=== PATIENT | male | born 1955 | race Caucasian/White ===

== ENCOUNTER 2017-05-29 12:59 | Emergency (ER) | payer SELFPAY ==
[~2017-05-29] VITALS: Ht 167.6 cm; Wt 75.0 kg
[~2017-05-29 12:59] MED LIST: NAPR550 PO; Z.0.NO CURRENT MEDS
[2017-05-29 13:07] VITALS: BP 109/67; PULSE 90; RESP 18; TEMP 97.8; O2SAT 97
[2017-05-29] MEDS ORDERED: LIDOCAINE 1%/EPINEPHrine 1:100,000 SOLN 20 ML VIAL INFIL ONE (14:45)
--- NOTE | 2017-05-29 14:53 | PD ---
HPI Chief Complaint: Skin complaint Time Seen by Provider: 14:38 Travel History International Travel<30 days: No Contact w/Intl Traveler<30days: No Traveled to known affect area: No History of Present Illness HPI 62-year-old male presents to the emergency room for evaluation of a growing, painful, red lump to his back. Patient first noticed it one year ago but it was small and did not bother him. States it occasionally larger but decreased on its own. States it increased in size 2-3 weeks ago, larger than it has ever been , and has become increasingly painful. He denies any drainage. Denies fever, chills, nausea, and vomiting. PFSH Past Medical History Diminished Hearing: No Hypertension: Yes Musculoskeletal: Yes (BACK PROBLEMS IN PAST) Past Surgical History Other Surgery: Yes (HERNIA) Social History Alcohol Use: No Tobacco Use: Yes (1 PPD X 30+ YEARS ) Substance Use: No Allergies-Medications (Allergen,Severity, Reaction): Coded Allergies: No Known Allergies (Verified , 08/26/11) Reported Meds & Prescriptions Reported Meds & Active Scripts Active Anaprox Ds (Naproxen Sodium) 550 Mg Tab 550 Mg PO BIDPRN Reported No Current Meds (Miscellaneous Medication) Misc Review of Systems Except as stated in HPI: all other systems reviewed are Neg Physical Exam Narrative GENERAL: Well-nourished, well-developed male in no acute distress. Afebrile. Ambulatory. SKIN: Focused skin assessment warm/dry. There is an indurated area in the left mid back which measures about 4 cm in diameter. It is fluctuant but there is no pointing or drainage. There is a zone of inflammation around it but no lymphangitis. HEAD: Normocephalic. EYES: No scleral icterus. No injection or drainage. NECK: Supple, trachea midline. No JVD or lymphadenopathy. CARDIOVASCULAR: Regular rate and rhythm without murmurs, gallops, or rubs. RESPIRATORY: Breath sounds equal bilaterally. No accessory muscle use. PSYCHIATRIC: No delusional thought processes. No hallucinations. Data Data Last Documented VS Vital Signs Date Time Temp Pulse Resp B/P (MAP) Pulse Ox O2 Delivery O2 Flow Rate FiO2 05/29/17 13:07 97.8 90 18 109/67 (81) 97 Room Air Orders Orders Lidocai-Epi 1%-1:100,000 Inj (Xylocaine- (05/29/17 14:45) MDM Medical Decision Making Medical Screen Exam Complete: Yes Emergency Medical Condition: Yes Medical Record Reviewed: Yes Differential Diagnosis Abscess, cellulitis, folliculitis, infected sebaceous cyst Narrative Course 62-year-old male presents to the emergency room for evaluation of painful lump to back that has been increasing in size for the past 2-3 weeks. Physical exam reveals a 4 cm abscess of fluctuance and erythema on the left mid back. It is extremely tender to palpation. No surrounding erythema or lymphangitis. Vital signs stable. History and physical exam are consistent with infected sebaceous cyst. Abscess was drained, see procedure note for details. Patient was told to follow-up with a credit portfolio advisor for sebaceous cyst removal. Patient discharged with prescription for Bactrim and told to follow-up with a primary care physician or return for worsening symptoms. He understands and agrees to plan. Procedures Procedure Narrative INCISION AND DRAINAGE OF ABSCESS: The area was prepped and was sterilely draped. A subcutaneous wheal of 1% lidocaine with epinephrine with a total number 2 mL was used to anesthetize the area properly. A number 11 scalpel was used to make a 1 cm incision across the area of the abscess. The abscess was drained, complex loculations were broken down, and irrigated with normal saline. Cultures were obtained. Sterile dressing applied. Diagnosis Primary Impression: Infected sebaceous cyst of skin Referrals: Primary Care Physician Additional Instructions: Rest and drink plenty of fluids. Take Bactrim as directed, until gone. Follow up with a primary care physician. Return to emergency room for worsening symptoms, as discussed. Disposition: 01 DISCHARGE HOME Condition: Stable Nilda Riggs May 29, 2017 14:53
[2017-05-29] MEDS ORDERED: BACT800T5 PO (14:54)
[2017-05-29 14:58] VITALS: PULSE 80; RESP 16; O2SAT 98
[2017-05-29] MEDS ORDERED: LIDOCAINE HCL 1% 50 ML VIAL INFIL ONE (15:30)
== END 2017-05-29 15:52 | disposition home or self-care (01) ==
LOC: PHED 12:59 → PHEFT 15:52
DX: L72.3 Sebaceous cyst (principal); L08.9 Local infection of the skin and subcutaneous tissue, unspecified; I10 Essential (primary) hypertension; F17.210 Nicotine dependence, cigarettes, uncomplicated
CPT/HCPCS: 10060

== ENCOUNTER 2017-11-18 20:03 | Observation (INO) | payer SELFPAY ==
[~2017-11-18] VITALS: Ht 167.6 cm; Wt 73.4 kg
[2017-11-18] VITALS (9 sets, daily range): BP systolic 164–228; BP diastolic 90–134; PULSE 76–89; RESP 16–20; TEMP 98.7; O2SAT 94–97
[~2017-11-18 20:03] MED LIST changes: +BACT800T5 PO
[2017-11-18] MEDS ORDERED: LABETALOL HCL 100 MG/20 ML VIAL IV PUSH ONE ×2 (20:45→23:00)
[2017-11-18] MEDS ORDERED: SODIUM CHLORIDE 0.9% FLUSH 10 ML FLUSH IVF PRN (20:45)
[2017-11-18] MEDS ORDERED: ASPIRIN 81 MG CHEW TAB PO ONE (20:45)
[2017-11-18] MEDS ORDERED: NITROGLYCERIN 0.4 MG SL 25 TABS/BTL SL ONE (20:45)
--- NOTE | 2017-11-18 20:47 | PD ---
HPI Chief Complaint: Chest Pain Time Seen by Provider: 20:41 Travel History International Travel<30 days: No Contact w/Intl Traveler<30days: No Traveled to known affect area: No History of Present Illness HPI 62-year-old male presents to the emergency department by private transportation for complaint of intermittent chest pain and elevated blood pressure today. Patient is prescribed lisinopril. Patient states during the day started noticing discomfort in his chest which is now resolved. Patient also reports that he has not been taking his prescription blood pressure medication as he has been out of the medication. Patient is a tobacco smoker. Patient denies diabetes and dyslipidemia and does not report of premature onset family history of cardiac disease. Patient states he underwent cardiac catheterization he thinks about a year ago and did not undergo angioplasty or stent placement for similar presentation of chest pain associated with uncontrolled hyper pressure. Patient was managed at that time reportedly during his cardiac catheterization visit at [facility]. Patient rates his current discomfort 0-1/10 in intensity. Patient states intermittently throughout the day pain has been 8/10 intensity but denies that discomfort at this time. Patient had some shortness of breath but otherwise no shortness of breath secondary to tobacco use and possible COPD patient states no increased shortness of breath no diaphoresis no nausea or vomiting. Patient denies referred midscapular upper extremity shoulder neck jaw or abdominal pain but does complain of chronic low back pain denies any lower extremity numbness tingling or weakness saddle anesthesia or bladder or bowel dysfunction. [facility] Past Medical History Narrative Medical Hypertension, chronic low back pain, tobaccoism, cardiac catheterization; nursing notes reviewed Diminished Hearing: No Hypertension: Yes Musculoskeletal: Yes (BACK PROBLEMS IN PAST) Reproductive: Yes (hernia lt) Past Surgical History Other Surgery: Yes (HERNIA) Social History Alcohol Use: No Tobacco Use: Yes (1 PPD X 30+ YEARS ) Substance Use: No Allergies-Medications (Allergen,Severity, Reaction): Coded Allergies: No Known Allergies (Verified , 08/26/11) Reported Meds & Prescriptions Reported Meds & Active Scripts Active Bactrim DS (Sulfamethoxazole-Trimethoprim) 800-160 Mg Tab 1 Tab PO BID Anaprox Ds (Naproxen Sodium) 550 Mg Tab 550 Mg PO BIDPRN Reported No Current Meds (Miscellaneous Medication) Misc Review of Systems Except as stated in HPI: all other systems reviewed are Neg Physical Exam Narrative GENERAL: Well-developed well-nourished male no acute distress and respiratory distress with marked hypertension blood pressures right upper extremity left upper extremity essentially unchanged SKIN: Warm and dry. HEAD: Normocephalic. EYES: No scleral icterus. No injection or drainage. NECK: Supple, trachea midline. No JVD or lymphadenopathy. CARDIOVASCULAR: Regular rate and rhythm without murmurs, gallops, or rubs. RESPIRATORY: Breath sounds equal bilaterally. No accessory muscle use. GASTROINTESTINAL: Abdomen soft, non-tender, nondistended. MUSCULOSKELETAL: No cyanosis, or edema. Radial and dorsalis pedis pulses 2+ to palpation. BACK: Nontender without obvious deformity. No CVA tenderness. Data Data Last Documented VS Vital Signs Date Time Temp Pulse Resp B/P (MAP) Pulse Ox O2 Delivery O2 Flow Rate FiO2 11/18/17 22:53 77 16 180/104 (129) 96 Room Air 11/18/17 20:20 98.7 Orders Orders Electrocardiogram (11/18/17 20:41) Basic Metabolic Panel (Bmp) (11/18/17 20:41) Ckmb (Isoenzyme) Profile (11/18/17 20:41) Complete Blood Count With Diff (11/18/17 20:41) Magnesium (Mg) (11/18/17 20:41) Prothrombin Time / Inr (Pt) (11/18/17 20:41) Act Partial Throm Time (Ptt) (11/18/17 20:41) Troponin I (11/18/17 20:41) Chest, Single Ap (11/18/17 20:41) Ecg Monitoring (11/18/17 20:41) Bilateral Bp Monitoring (11/18/17 20:41) Iv Access Insert/Monitor (11/18/17 20:41) Oximetry (11/18/17 20:41) Oxygen Administration (11/18/17 20:41) Aspirin Chew (Aspirin Chew) (11/18/17 20:45) Sodium Chloride 0.9% Flush (Ns Flush) (11/18/17 20:45) Nitroglycerin Sl (Nitrostat Sl) (11/18/17 20:45) Labetalol Inj (Trandate Inj) (11/18/17 20:45) CKMB (11/18/17 20:58) CKMB% (11/18/17 20:58) Nitroglycerin 2% Oint (Nitroglycerin 2% (11/18/17 21:45) Morphine Inj (Morphine Inj) (11/18/17 21:45) Ondansetron Inj (Zofran Inj) (11/18/17 21:45) Labetalol Inj (Trandate Inj) (11/18/17 23:00) Labs Laboratory Tests Test 11/18/17 20:58 White Blood Count 5.5 TH/MM3 Red Blood Count 4.78 MIL/MM3 Hemoglobin 14.8 GM/DL Hematocrit 43.1 % Mean Corpuscular Volume 90.3 FL Mean Corpuscular Hemoglobin 30.9 PG Mean Corpuscular Hemoglobin Concent 34.2 % Red Cell Distribution Width 13.0 % Platelet Count 146 TH/MM3 Mean Platelet Volume 9.5 FL CBC Comment AUTO DIFF Differential Total Cells Counted 100 Neutrophils % (Manual) 45 % Lymphocytes % 43 % Monocytes % 10 % Eosinophils % 2 % Neutrophils # (Manual) 2.5 TH/MM3 Differential Comment FINAL DIFF MANUAL Atypical Lymphocytes % Platelet Estimate LOW Platelet Morphology Comment NORMAL Prothrombin Time 10.5 SEC Prothromb Time International Ratio 1.0 RATIO Activated Partial Thromboplast Time 21.1 SEC Blood Urea Nitrogen 9 MG/DL Creatinine 0.98 MG/DL Random Glucose 101 MG/DL Calcium Level 8.5 MG/DL Magnesium Level 2.0 MG/DL Sodium Level 134 MEQ/L Potassium Level 3.5 MEQ/L Chloride Level 102 MEQ/L Carbon Dioxide Level 25.4 MEQ/L Anion Gap 7 MEQ/L Estimat Glomerular Filtration Rate 78 ML/MIN Total Creatine Kinase 154 U/L Creatine Kinase MB 1.9 NG/ML Troponin I LESS THAN 0.02 NG/ML MDM Medical Decision Making Medical Screen Exam Complete: Yes Emergency Medical Condition: Yes Medical Record Reviewed: Yes Interpretation(s) EKG: Normal sinus rhythm rate [address] elevation prominent T waves, poor R -wave progression septally V1 V2 Chest X-Ray 11/18/172040 Signed Impressions: Service Date/Time: Saturday, November 18, 2017 21:01 - CONCLUSION: No acute cardiopulmonary disease. Spencer Green MD CBC & BMP Diagram 11/18/17 20:58 Calcium Level 8.5, Magnesium Level 2.0 Vital Signs Date Time Temp Pulse Resp B/P (MAP) Pulse Ox O2 Delivery O2 Flow Rate FiO2 11/18/17 21:17 16 11/18/17 21:13 84 16 164/90 (114) 94 Room Air 11/18/17 21:09 76 16 199/115 (143) 95 Room Air 11/18/17 20:41 83 16 214/121 (152) 94 Room Air 11/18/17 20:40 83 16 228/134 (165) 97 Room Air 11/18/17 20:29 79 18 219/109 (145) 96 Room Air 11/18/17 20:20 98.7 89 20 183/105 (131) 97 Differential Diagnosis Chest pain, ACS, DE, hypertensive crisis, aortic dissection Narrative Course Patient placed on monitoring manager EKG performed shows normal sinus rhythm rate of 82 prominent T waves no acute ST elevation injury pattern no comparison EKG patient also placed on continuous pulse oximetry IV access obtained aspirin 162 mg administered one sublingual nitroglycerin for 0-1/10 in intensity chest discomfort and labetalol ordered for blood pressure control. At 9:45 PM after 1 sublingual nitroglycerin blood pressure has markedly improved and patient denies any chest discomfort discomfort as 0/10 in intensity and denies any chest pain pain is 0/10 intensity except for headache secondary to sublingual nitroglycerin overall discomfort/pain is 0/10 intensity. Patient administered Nitropaste to chest wall and morphine sulfate 2 mg IV along with Zofran 4 mg IV. Troponin I is less than 0.02, not elevated and CK total is not elevated; patient is informed of plan to admit to chest pain center per protocol for chest pain with risk factors of male age 62 hypertension tobaccoism. Most likely chest pain reflects really controlled hypertension but this factors are present for CAD. Chest x-ray reveals no mediastinal widening. Physician Communication Physician Communication discussed with [facility] service for OBS to [facility] per protocol Diagnosis Primary Impression: Chest pain Additional Impression: Hypertensive urgency Admitting Information Admitting Physician Requests: Observation Yolanda Mariscal MD Nov 18, 2017 20:47
--- NOTE | 2017-11-18 21:13 | RADRPT ---
EXAM DATE/TIME: 11/18/2017 21:01 [place] COMPARISON: No previous studies available for comparison. INDICATIONS : Chest pain starting today MEDICAL HISTORY : Hypertension. SURGICAL HISTORY : None. ENCOUNTER: Initial ACUITY: 1 day PAIN SCORE: 5/10 LOCATION: Bilateral chest FINDINGS: The lungs are clear without infiltrate, nodule, or mass. There is no appreciable pleural effusion fo r technique. Heart and mediastinum are unremarkable. CONCLUSION: No acute cardiopulmonary disease. Spencer Green MD on November 18, 2017 at 21:11 Board Certified Radiologist. This report was verified electronically.
[2017-11-18 21:17] LABS: CHLORIDE 102 MEQ/L (98-107); SODIUM (NA) 134 MEQ/L (136-145)
[2017-11-18 21:20] LABS: BICARBONATE 25.4 MEQ/L (21.0-32.0); BLOOD UREA NITROGEN 9 MG/DL (7-18); CALCIUM 8.5 MG/DL (8.5-10.1); GLUCOSE,RANDOM 101 MG/DL (74-106)
[2017-11-18 21:24] LABS: CREATININE 0.98 MG/DL (0.60-1.30); GLOMERULAR FILTRATION RATE 78 ML/MIN (>89); PROTHROMBIN TIME - PATIENT 10.5 SEC (9.8-11.6)
[2017-11-18 21:25] LABS: HEMATOCRIT 43.1 % (39.0-51.0); HEMOGLOBIN 14.8 GM/DL (13.0-17.0); MEAN CELL VOLUME 90.3 FL (80.0-100.0); MEAN CORPUSCULAR HEMOGLOBIN 30.9 PG (27.0-34.0); MEAN CORPUSCULAR HGB CONC 34.2 % (32.0-36.0); MEAN PLATELET VOLUME 9.5 FL (7.0-11.0); PLATELET COUNT 146 TH/MM3 (150-450); RED BLOOD COUNT 4.78 MIL/MM3 (4.50-5.90); WHITE BLOOD COUNT 5.5 TH/MM3 (4.0-11.0)
[2017-11-18 21:28] LABS: TROPONIN I LESS THAN 0.02 NG/ML (0.02-0.05)
[2017-11-18] MEDS ORDERED: ONDANSETRON HCL 4 MG/2 ML VIAL IV PUSH ONE (21:45)
[2017-11-18] MEDS ORDERED: MORPHINE SULFATE 2 MG/ML INJ IV PUSH ONE (21:45)
[2017-11-18] MEDS ORDERED: NITROGLYCERIN 2% OINT 1 GM PACKET TOPICAL ONE (21:45)
[2017-11-18 22:29] LABS: LYMPHOCYTES 43 % (9-44); MONOCYTES 10 % (0-8); NEUTROPHIL # MANUAL DIFF 2.5 TH/MM3 (1.8-7.7); POLYS (SEG NEUTROPHILS) 45 % (16-70)
[2017-11-18] MEDS ORDERED: SODIUM CHLORIDE 0.9% FLUSH 10 ML FLUSH IV FLUSH PRN (23:30)
[2017-11-18] MEDS ORDERED: NITROGLYCERIN 0.4 MG SL 25 TABS/BTL SL PRN (23:30)
[2017-11-19] VITALS (7 sets, daily range): BP systolic 126–223; BP diastolic 68–123; PULSE 63–76; RESP 14–16; O2SAT 95–98
[2017-11-19 05:57] LABS: AUTOMATED NEUTROPHIL # 3.9 TH/MM3 (1.8-7.7); BASOPHIL % 0.8 % (0.0-2.0); EOSINOPHIL # 0.2 TH/MM3 (0-0.4); EOSINOPHIL % 3.5 % (0.0-4.0); HEMATOCRIT 41.3 % (39.0-51.0); HEMOGLOBIN 14.8 GM/DL (13.0-17.0); LYMPH % 23.2 % (9.0-44.0); LYMPHOCYTE # 1.3 TH/MM3 (1.0-4.8); MEAN CORPUSCULAR HEMOGLOBIN 32.2 PG (27.0-34.0); MEAN CORPUSCULAR HGB CONC 35.8 % (32.0-36.0); MEAN PLATELET VOLUME 8.8 FL (7.0-11.0); MONOCYTE # 0.4 TH/MM3 (0-0.9); NEUT % 65.5 % (16.0-70.0); PLATELET COUNT 150 TH/MM3 (150-450); RED BLOOD COUNT 4.59 MIL/MM3 (4.50-5.90); RED CELL DISTRIBUTION WIDTH 13.1 % (11.6-17.2); WHITE BLOOD COUNT 5.8 TH/MM3 (4.0-11.0)
[2017-11-19 06:04] LABS: BICARBONATE 25.1 MEQ/L (21.0-32.0)
[2017-11-19] MEDS ORDERED: LISINOPRIL 10 MG TAB PO SCH (08:00)
[2017-11-19] MEDS ORDERED: METOPROLOL TARTRATE 25 MG TAB PO SCH (08:00)
[2017-11-19] MEDS ORDERED: ENALAPRILAT 1.25 MG/ML VIAL IV PUSH PRN (08:00)
[2017-11-19] MEDS ORDERED: SODIUM CHLORIDE 0.9% FLUSH 10 ML FLUSH IV FLUSH SCH (09:00)
[2017-11-19 10:36] LABS: CHOLESTEROL/ HDL RATIO 4.86 RATIO; HDL CHOLESTEROL 28.6 MG/DL (40.0-60.0)
--- NOTE | 2017-11-19 14:56 | EKG ---
Date Performed: 11/18/2017 Time Performed: 20:30:28 PTAGE: 62 years EKG: Sinus rhythm NORMAL ECG PREVIOUS TRACING : 02/13/2011 20.47 Since the prior tracing, there has been no significant woodward DOCTOR: Guy Guzmán Interpretating Date/Time 11/19/2017 14:48:40
--- NOTE | 2017-11-19 14:56 | EKG ---
Date Performed: 11/19/2017 Time Performed: 07:51:10 PTAGE: 62 years EKG: Sinus rhythm WITH SINUS ARRHYTHMIA MINIMAL VOLTAGE CRITERIA FOR LVH, CONSIDER NORMAL VARIANT BORDERLINE ECG PREVIOUS TRACING : 11/19/2017 01.45 Since the prior tracing, there has been no significant woodward DOCTOR: Guy Guzmán Interpretating Date/Time 11/19/2017 14:48:22
--- NOTE | 2017-11-19 14:56 | EKG ---
Date Performed: 11/19/2017 Time Performed: 01:45:10 PTAGE: 62 years EKG: Sinus rhythm NORMAL ECG PREVIOUS TRACING : 11/18/2017 20.30 Since the prior tracing, there has been no significant woodward DOCTOR: Guy Guzmán Interpretating Date/Time 11/19/2017 14:48:31
[2017-11-20] MEDS ORDERED: PNEUMOCOCCAL POLYVALENT INJ 25 MCG/0.5 ML SYR IM ONE (10:00)
[2017-11-20] MEDS ORDERED: INFLUENZA VIRUS VACCINE (QUADRIVALENT) 0.5 ML SYR IM ONE (10:00)
== END 2017-11-19 09:00 | disposition left against medical advice (07) ==
LOC: PHED 20:03 → PHEDA 23:19 → PHEDH 11-19 06:15
PROVIDERS: ADMIT Hospitalist; ATTEND Hospitalist
DX: R07.9 Chest pain, unspecified (principal); I16.0 Hypertensive urgency; I10 Essential (primary) hypertension; G89.29 Other chronic pain; M54.5 Low back pain; F17.200 Nicotine dependence, unspecified, uncomplicated; Z91.14 Patient's other noncompliance with medication regimen; Z98.61 Coronary angioplasty status; Z53.20 Procedure and treatment not carried out because of patient's decision for unspecified reasons
CPT/HCPCS: 71045; 80048; 80061; 82550; 82552; 83735; 84484; 85007; 85025; 85027; 85610; 85730; 93005; 96374; 96375; 96376; 99285; G0378; J2270; J2405

== ENCOUNTER 2018-07-13 17:37 | Observation (INO) ==
[2018-07-13 18:11] LABS: Baso # (Auto) 0.1 th/mm3 (0.0-0.2); Baso % (Auto) 0.9 % (0.0-2.0); Eos # (Auto) 0.2 th/mm3 (0.0-0.4); Eos % (Auto) 2.4 % (0.0-4.0); Hematocrit 40.5 % (39.0-51.0); Hemoglobin 13.9 gm/dL (13.0-17.0); Lymph # (Auto) 2.4 th/mm3 (1.0-4.8); Lymph % (Auto) 32.3 % (9.0-44.0); Mean Corpuscular HGB Conc 34.3 % (32.0-36.0); Mean Corpuscular Hemoglobin 32.8 pg (27.0-34.0); Mean Corpuscular Volume 95.6 fL (80.0-100.0); Mean Platelet Volume 8.7 fL (7.0-11.0); Mono # (Auto) 0.4 th/mm3 (0.0-0.9); Mono % (Auto) 5.4 % (0.0-8.0); Neut # (Auto) 4.3 th/mm3 (1.8-7.7); Platelet Count 193 th/mm3 (150-450); Red Blood Count 4.24 mil/mm3 (4.50-5.90); Red Cell Distribution Width 12.8 % (11.6-17.2); White Blood Count 7.4 th/mm3 (4.0-11.0)
[2018-07-13 18:17] LABS: Chloride 104 meq/L (98-107); Potassium 3.1 meq/L (3.5-5.1); Sodium 139 meq/L (136-145)
--- NOTE | 2018-07-13 18:19 | XR ---
EXAM DATE: 07/13/2018 5:45 PM EDT AGE/SEX: 63 years / Male INDICATIONS: Chest pain and shortness of breath. CLINICAL DATA: This is the patient's initial encounter. Patient reports that signs and symptoms have been present for 3 days and indicates a pain score of 5/10. MEDICAL/SURGICAL HISTORY: Hypertension. None. COMPARISON: [facility], CHEST SINGLE AP, 11/18/2017. . FINDINGS: A single AP view of the chest demonstrates the lungs to be symmetrically aerated without evidence of mass, infiltrate or effusion. The cardiomediastinal contours are unremarkable. Osseous structures a re intact. CONCLUSION: No acute cardiopulmonary process. Electronically signed by: Valdez Camejo MD 07/13/2018 6:18 PM EDT
[2018-07-13 18:21] LABS: Activated Partial Thrombo Time 21.6 sec (24.3-30.1); Prothrombin Time 10.2 sec (9.8-11.6)
[2018-07-13 18:22] LABS: Albumin 3.8 g/dL (3.4-5.0); Anion Gap 14 meq/L (5-15); Carbon Dioxide 21.4 meq/L (21.0-32.0)
[2018-07-13 18:23] LABS: Blood Urea Nitrogen 10 mg/dL (7-18); Glucose,Random 131 mg/dL (74-106); Magnesium 2.3 mg/dL (1.5-2.5)
[2018-07-13 18:25] LABS: Alanine Aminotransferase 25 U/L (12-78)
[2018-07-13 18:26] LABS: Aspartate Aminotransferase 28 U/L (15-37); Glomerular Filtration Rate 89 mL/min (>89)
[2018-07-13 18:27] LABS: Total Protein 6.8 g/dL (6.4-8.2)
[2018-07-13 18:28] LABS: Alkaline Phosphatase 98 U/L (45-117)
[2018-07-13 18:51] LABS: Creatine Kinase 90 U/L (39-308)
--- NOTE | 2018-07-13 19:24 | ED ---
HPI General Chief Complaint: Chest Pain Stated Complaint: chest pain Time Seen by Provider: 07/13/18 19:02 Source: patient Mode of arrival: ambulatory Limitations: no limitations History of Present Illness HPI narrative: Patient presents with substernal pressure radiating to both arms of acute onset while in store at 4 PM. Patient describes pressure 8 out of 10 like discomfort with diaphoresis of 15-20 minutes duration. Mild shortness of breath. Patient has history of hypertension and had a PR in October at [facility]. Patient being treated for hypertension. Patient is a chronic smoker with a cough that is persistent and produces yellow-green sputum. Vague anterior chest pain with deep inspiration or cough. No pain or discomfort in abdomen or extremities. MD complaint: Reports chest pain Related Data Home Medications Medication Instructions Recorded Confirmed lisinopril 40 mg PO DAILY 07/13/18 07/13/18 Allergies Allergy/AdvReac Type Severity Reaction Status Date / Time No Known Allergies Allergy Verified 07/13/18 17:39 Review of Systems ROS: all other systems reviewed are negative [facility] Medical History Medical History CAD (coronary artery disease) (Acute) Hypertension (Acute) Surgical History Surgical History No history of previous surgery (Acute) Social History Social History Substance History: No History of Abuse Second Hand Smoke Exposure: Yes Smoking Status: Current every day smoker Tobacco Type: Cigarettes How Often Do You Have a Drink Containing Alcohol: 2 to 3 times a week Recent Travel in [facility] within the Last 8 Weeks: No Recent Out of Country Travel within the Last 8 Weeks: No Immunization History Tetanus Immunization: Unsure Exam Narrative Exam Narrative: GENERAL: Alert oriented in no acute distress. No chest pain at present. SKIN: Focused skin assessment warm/dry. HEAD: Atraumatic. Normocephalic. EYES: Pupils equal and round. No scleral icterus. No injection or drainage. ENT: No nasal bleeding or discharge. Mucous membranes pink and moist. NECK: Trachea midline. No JVD. CARDIOVASCULAR: Regular rate and rhythm. No murmur appreciated. RESPIRATORY: No accessory muscle use. Clear to auscultation. Breath sounds equal bilaterally. Crepitant rales bilateral in bases GASTROINTESTINAL: Abdomen soft, non-tender, nondistended. Hepatic and splenic margins not palpable. MUSCULOSKELETAL: No obvious deformities. No clubbing. No cyanosis. No edema. NEUROLOGICAL: Awake and alert. No obvious cranial nerve deficits. Motor grossly within normal limits. Normal speech. PSYCHIATRIC: Appropriate mood and affect; insight and judgment normal. Course Initial Documented Vital Signs Temperature 97.6 F 07/13/18 17:39 Pulse Rate 94 H 07/13/18 17:39 Respiratory Rate 20 07/13/18 17:39 Blood Pressure 114/79 07/13/18 17:39 Pulse Oximetry 96 07/13/18 17:39 Last Documented Vital Signs Temperature 97 F L 07/14/18 00:00 Pulse Rate 87 07/14/18 00:00 Respiratory Rate 20 07/14/18 00:00 Blood Pressure 181/102 H 07/14/18 00:00 Pulse Oximetry 98 07/14/18 00:00 Medical Decision Making MDM Narrative Medical decision making narrative: Patient presents with approximately 4 different episodes of chest pain lasting between 15-20 minutes. Patient admitted for 24-hour observation and cardiac evaluation for CAD. No acute changes at present no recurrence of chest pain since presentation. Medical Screen Exam Complete: Yes Emergency Medical Condition: Yes Lab Data Result diagrams: 07/13/18 19:45 07/13/18 18:00 Lab Results 07/13/18 07/13/18 07/13/18 Range/Units 18:00 18:00 18:00 CBC w Diff Auto diff final WBC 7.4 (4.0-11.0) th/mm3 RBC 4.24 L (4.50-5.90) mil/mm3 Hgb 13.9 (13.0-17.0) gm/dL Hct 40.5 (39.0-51.0) % MCV 95.6 (80.0-100.0) fL MCH 32.8 (27.0-34.0) pg MCHC 34.3 (32.0-36.0) % RDW 12.8 (11.6-17.2) % Plt Count 193 (150-450) th/mm3 MPV 8.7 (7.0-11.0) fL Neut % (Auto) 59.0 (16.0-70.0) % Lymph % (Auto) 32.3 (9.0-44.0) % [place] % (Auto) 5.4 (0.0-8.0) % Eos % (Auto) 2.4 (0.0-4.0) % Baso % (Auto) 0.9 (0.0-2.0) % Neut # (Auto) 4.3 (1.8-7.7) th/mm3 Lymph # (Auto) 2.4 (1.0-4.8) th/mm3 [place] # (Auto) 0.4 (0.0-0.9) th/mm3 Eos # (Auto) 0.2 (0.0-0.4) th/mm3 Baso # (Auto) 0.1 (0.0-0.2) th/mm3 WBC Differential . Differential Comment . PT 10.2 (9.8-11.6) sec INR 1.0 Ratio APTT 21.6 L (24.3-30.1) sec Sodium 139 (136-145) meq/L Potassium 3.1 L (3.5-5.1) meq/L Chloride 104 (98-107) meq/L Carbon Dioxide 21.4 (21.0-32.0) meq/L Anion Gap 14 (5-15) meq/L BUN 10 (7-18) mg/dL Creatinine 0.87 (0.60-1.30) mg/dL Estimated GFR 89 (>89) mL/min Random Glucose 131 H (74-106) mg/dL Calcium 8.0 L (8.5-10.1) mg/dL Magnesium 2.3 (1.5-2.5) mg/dL Total Bilirubin 0.4 (0.2-1.0) mg/dL AST 28 (15-37) U/L ALT 25 (12-78) U/L Alkaline Phosphatase 98 (45-117) U/L Total Creatine Kinase 90 (39-308) U/L Troponin I Less than 0.02 L (0.02-0.05) ng/mL B-Natriuretic Peptide (0-100) pg/mL Total Protein 6.8 (6.4-8.2) g/dL Albumin 3.8 (3.4-5.0) g/dL Urine Color (Yellw/Straw) Urine Clarity (Clear) Urine pH (5.0-8.5) Ur Specific [place] (1.002-1.035) Urine Protein (Neg-Trace) mg/dL Urine Glucose (UA) (Negative) mg/dL Urine Ketones (Negative) mg/dL Urine Occult Blood (Negative) Urine Nitrate (Negative) Urine Bilirubin (Negative) Urine Urobilinogen (Less than 2) mg/dL Ur Leukocyte Esterase (Negative) Urine WBC (0-5) /hpf Micro UA Comment Ur Microscopic Review Urine Culture Comments 07/13/18 07/13/18 07/13/18 Range/Units 19:45 19:45 19:45 CBC w Diff Auto diff final WBC 6.9 (4.0-11.0) th/mm3 RBC 4.31 L (4.50-5.90) mil/mm3 Hgb 14.2 (13.0-17.0) gm/dL Hct 40.0 (39.0-51.0) % MCV 92.8 (80.0-100.0) fL MCH 32.9 (27.0-34.0) pg MCHC 35.4 (32.0-36.0) % RDW 13.1 (11.6-17.2) % Plt Count 222 (150-450) th/mm3 MPV 9.5 (7.0-11.0) fL Neut % (Auto) 52.5 (16.0-70.0) % Lymph % (Auto) 34.2 (9.0-44.0) % [place] % (Auto) 5.7 (0.0-8.0) % Eos % (Auto) 3.3 (0.0-4.0) % Baso % (Auto) 4.3 H (0.0-2.0) % Neut # (Auto) 3.6 (1.8-7.7) th/mm3 Lymph # (Auto) 2.4 (1.0-4.8) th/mm3 [place] # (Auto) 0.4 (0.0-0.9) th/mm3 Eos # (Auto) 0.2 (0.0-0.4) th/mm3 Baso # (Auto) 0.3 H (0.0-0.2) th/mm3 WBC Differential . Differential Comment . PT (9.8-11.6) sec INR Ratio APTT (24.3-30.1) sec Sodium (136-145) meq/L Potassium (3.5-5.1) meq/L Chloride (98-107) meq/L Carbon Dioxide (21.0-32.0) meq/L Anion Gap (5-15) meq/L BUN (7-18) mg/dL Creatinine (0.60-1.30) mg/dL Estimated GFR (>89) mL/min Random Glucose (74-106) mg/dL Calcium (8.5-10.1) mg/dL Magnesium (1.5-2.5) mg/dL Total Bilirubin (0.2-1.0) mg/dL AST (15-37) U/L ALT (12-78) U/L Alkaline Phosphatase (45-117) U/L Total Creatine Kinase (39-308) U/L Troponin I Less than 0.02 L (0.02-0.05) ng/mL B-Natriuretic Peptide 48 (0-100) pg/mL Total Protein (6.4-8.2) g/dL Albumin (3.4-5.0) g/dL Urine Color (Yellw/Straw) Urine Clarity (Clear) Urine pH (5.0-8.5) Ur Specific [place] (1.002-1.035) Urine Protein (Neg-Trace) mg/dL Urine Glucose (UA) (Negative) mg/dL Urine Ketones (Negative) mg/dL Urine Occult Blood (Negative) Urine Nitrate (Negative) Urine Bilirubin (Negative) Urine Urobilinogen (Less than 2) mg/dL Ur Leukocyte Esterase (Negative) Urine WBC (0-5) /hpf Micro UA Comment Ur Microscopic Review Urine Culture Comments 07/13/18 07/13/18 07/14/18 Range/Units 21:30 22:15 02:30 CBC w Diff WBC (4.0-11.0) th/mm3 RBC (4.50-5.90) mil/mm3 Hgb (13.0-17.0) gm/dL Hct (39.0-51.0) % MCV (80.0-100.0) fL MCH (27.0-34.0) pg MCHC (32.0-36.0) % RDW (11.6-17.2) % Plt Count (150-450) th/mm3 MPV (7.0-11.0) fL Neut % (Auto) (16.0-70.0) % Lymph % (Auto) (9.0-44.0) % [place] % (Auto) (0.0-8.0) % Eos % (Auto) (0.0-4.0) % Baso % (Auto) (0.0-2.0) % Neut # (Auto) (1.8-7.7) th/mm3 Lymph # (Auto) (1.0-4.8) th/mm3 [place] # (Auto) (0.0-0.9) th/mm3 Eos # (Auto) (0.0-0.4) th/mm3 Baso # (Auto) (0.0-0.2) th/mm3 WBC Differential Differential Comment PT (9.8-11.6) sec INR Ratio APTT (24.3-30.1) sec Sodium (136-145) meq/L Potassium (3.5-5.1) meq/L Chloride (98-107) meq/L Carbon Dioxide (21.0-32.0) meq/L Anion Gap (5-15) meq/L BUN (7-18) mg/dL Creatinine (0.60-1.30) mg/dL Estimated GFR (>89) mL/min Random Glucose (74-106) mg/dL Calcium (8.5-10.1) mg/dL Magnesium (1.5-2.5) mg/dL Total Bilirubin (0.2-1.0) mg/dL AST (15-37) U/L ALT (12-78) U/L Alkaline Phosphatase (45-117) U/L Total Creatine Kinase 75 (39-308) U/L Troponin I Less than 0.02 L Less than 0.02 L (0.02-0.05) ng/mL B-Natriuretic Peptide (0-100) pg/mL Total Protein (6.4-8.2) g/dL Albumin (3.4-5.0) g/dL Urine Color Straw (Yellw/Straw) Urine Clarity Clear (Clear) Urine pH 6.0 (5.0-8.5) Ur Specific [place] Less/equal 1.005 (1.002-1.035) Urine Protein Negative (Neg-Trace) mg/dL Urine Glucose (UA) Negative (Negative) mg/dL Urine Ketones Negative (Negative) mg/dL Urine Occult Blood Negative (Negative) Urine Nitrate Negative (Negative) Urine Bilirubin Negative (Negative) Urine Urobilinogen 0.2 (Less than 2) mg/dL Ur Leukocyte Esterase Negative (Negative) Urine WBC 0-5 (0-5) /hpf Micro UA Comment Culture not ind Ur Microscopic Review Microscopic reviewed Urine Culture Comments Culture not ind Imaging Data Radiologist's impression: Chest X-Ray 07/13/18 17:45 CONCLUSION: No acute cardiopulmonary process. Chest X-Ray 07/13/18 19:28 CONCLUSION: Negative lateral chest x-ray. ECG Data EKG Prior to Arrival: No Attestation: I personally reviewed and interpreted this ECG as follows: Prior ECG tracings: available for review Interpretation: Normal axis with normal sinus rhythm. No ischemic changes. no prolongation of intervals. Unchanged from previous electric cardiogram Discharge Plan Discharge Disposition Patient Disposition: 30 Still Patient Physicians Team ED Provider: Hussain Rodriguez Primary Care Provider: Primary Care Carlita,Estela Attending Provider: Hollie Heart Status ED Status: Left Department Discharge Information Discharge Date/Time: 07/13/18 23:17
[2018-07-13 20:02] LABS: Baso # (Auto) 0.3 th/mm3 (0.0-0.2); Baso % (Auto) 4.3 % (0.0-2.0); Eos # (Auto) 0.2 th/mm3 (0.0-0.4); Eos % (Auto) 3.3 % (0.0-4.0); Hemoglobin 14.2 gm/dL (13.0-17.0); Lymph # (Auto) 2.4 th/mm3 (1.0-4.8); Lymph % (Auto) 34.2 % (9.0-44.0); Mean Corpuscular HGB Conc 35.4 % (32.0-36.0); Mean Corpuscular Hemoglobin 32.9 pg (27.0-34.0); Mean Corpuscular Volume 92.8 fL (80.0-100.0); Mean Platelet Volume 9.5 fL (7.0-11.0); Mono # (Auto) 0.4 th/mm3 (0.0-0.9); Mono % (Auto) 5.7 % (0.0-8.0); Neut # (Auto) 3.6 th/mm3 (1.8-7.7); Neut % (Auto) 52.5 % (16.0-70.0); Platelet Count 222 th/mm3 (150-450); Red Blood Count 4.31 mil/mm3 (4.50-5.90); Red Cell Distribution Width 13.1 % (11.6-17.2); White Blood Count 6.9 th/mm3 (4.0-11.0)
--- NOTE | 2018-07-13 20:10 | XR ---
EXAM DATE: 07/13/2018 7:28 PM EDT AGE/SEX: 63 years / Male INDICATIONS: Shortness of breath and chest pain. CLINICAL DATA: This is the patient's initial encounter. Patient reports that signs and symptoms have been present for 1 week and indicates a pain score of 5/10. MEDICAL/SURGICAL HISTORY: Hypertension. None. COMPARISON: [facility], CHEST 1V SINGLE AP, 07/13/2018. . FINDINGS: A single lateral film has been obtained. No focal consolidation is seen. The bony structures appear a ligned. The heart size is normal. No evidence of pleural effusion. CONCLUSION: Negative lateral chest x-ray. Electronically signed by: Valdez Camejo MD 07/13/2018 8:09 PM EDT
[2018-07-13 21:45] LABS: Bilirubin,Urine Negative (Negative); Clarity,Urine Clear (Clear); Glucose,Urine (UA) Negative (Negative); Leukocyte Esterase,Urine Negative (Negative); Nitrite,Urine Negative (Negative); Specific Gravity,Urine Less/Equal 1.005 (1.002-1.035); Urobilinogen,Urine 0.2 mg/dL (Less than 2)
[2018-07-13 21:46] LABS: Color,Urine Straw (Yellw/Straw)
[2018-07-13 21:51] LABS: WBC,Urine 0-5 /hpf (0-5)
[2018-07-14 03:09] LABS: Creatine Kinase 75 U/L (39-308)
[2018-07-14 07:30] LABS: Baso # (Auto) 0.2 th/mm3 (0.0-0.2); Baso % (Auto) 2.9 % (0.0-2.0); Eos # (Auto) 0.1 th/mm3 (0.0-0.4); Eos % (Auto) 2.7 % (0.0-4.0); Hematocrit 39.4 % (39.0-51.0); Hemoglobin 13.6 gm/dL (13.0-17.0); Lymph # (Auto) 1.2 th/mm3 (1.0-4.8); Lymph % (Auto) 23.2 % (9.0-44.0); Mean Corpuscular HGB Conc 34.4 % (32.0-36.0); Mean Corpuscular Hemoglobin 32.3 pg (27.0-34.0); Mean Corpuscular Volume 93.7 fL (80.0-100.0); Mean Platelet Volume 9.4 fL (7.0-11.0); Mono # (Auto) 0.4 th/mm3 (0.0-0.9); Mono % (Auto) 6.8 % (0.0-8.0); Neut # (Auto) 3.5 th/mm3 (1.8-7.7); Neut % (Auto) 64.4 % (16.0-70.0); Platelet Count 184 th/mm3 (150-450); Red Blood Count 4.21 mil/mm3 (4.50-5.90); Red Cell Distribution Width 13.2 % (11.6-17.2); White Blood Count 5.4 th/mm3 (4.0-11.0)
[2018-07-14 07:45] LABS: Calcium 8.3 mg/dL (8.5-10.1); Carbon Dioxide 23.4 meq/L (21.0-32.0); Potassium 4.1 meq/L (3.5-5.1)
[2018-07-14 08:27] VITALS: RESP 18
[2018-07-14] MEDS ORDERED: Lisinopril 20 MG Tablet PO SCH (09:00)
--- NOTE | 2018-07-14 09:47 | ECG ---
Date Performed: 07/13/2018 Time Performed: 22:43:54 PTAGE: 63 years EKG: Sinus rhythm WITH OCCASIONAL SUPRAVENTRICULAR PREMATURE COMPLEXES BORDERLINE ECG PREVIOUS TRACING : 07/13/2018 17.46 DOCTOR: Alen Rincon Interpretating Date/Time 07/14/2018 09:45:31
--- NOTE | 2018-07-14 09:52 | P.HP ---
History of Present Illness Primary Care Physician: No Primary Care Physician Chief Complaint: Chest pain History of Present Illness: 63-year-old male with known history of hypertension who presented to the emergency department for evaluation of chest discomfort. Patient indicates that yesterday afternoon approximately 4 PM he developed chest discomfort which was right in the middle part of his chest which he classifies as a tightness sensation which was a 7/10 on a pain scale. He did develop numbness in his left arm as well. And then shortly after that he developed diaphoresis. Patient states that lasted approximately 30 minutes and the pain went down to a 4/10 on pain scale. Since the pain did not go away he came to emergency department for evaluation. Patient denied any lightheadedness, dizziness, shortness of breath, dyspnea. Patient indicates that he had a episode of chest discomfort like this beginning this year and was admitted to [facility] for 8 days. He states that he did not have any stress testing or catheterizations done at that time. 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 He does admit to taking his medications on a regular basis. Patient did have workup done emergency department which was unremarkable for any acute coronary event. Patient was recommended observation the chest pain center for further evaluation and management. - Diagnosis (1) Chest pain Review of Systems All other systems reviewed negative except as stated in HPI Constitutional: Reports excessive sweating Cardiovascular: Reports chest pain PMFSH - History History Provided By: Patient - Medical History Medical History: Medical History (Last Updated 07/14/18 @ 09:44 by JÚNIOR Rob) Hypertension - Surgical History Surgical History: Surgical History (Last Updated 07/14/18 @ 09:44 by JÚNIOR Rob) History of hernia repair - Family History Family History: Family History (Last Updated 07/14/18 @ 09:45 by JÚNIOR Rob) Father History of lung cancer Mother History of stomach cancer - Tobacco History Second Hand Smoke Exposure: Yes Tobacco Use In Past 30 Days: Yes Smoking Status: Current every day smoker Tobacco Type: Cigarettes Packs Per Day: 1 Years Smoked: 46 - Alcohol History How Often Do You Have a Drink Containing Alcohol: 2 to 3 times a week - Substance Use History Substance History: No History of Abuse - Travel History Recent Travel in the [place] Within the Last 8 Weeks: No Recent Travel Out of the Country Within the Last 8 Weeks: No - Immunization History Tetanus Immunization: Unsure Medications and Allergies Active Medications: Active Medications Clonidine HCl (Catapres) 0.1 mg PO Q6H PRN PRN Reason: SBP>160, DBP>90 Enalaprilat (Vasotec Inj) 1.25 mg IV.PUSH Q6H PRN PRN Reason: SBP> OR = 180, DBP> OR = 100 Last Admin: 07/14/18 05:55 Dose: 1.25 mg Lisinopril (Prinivil) 40 mg PO DAILY GONZÁLEZ Last Admin: 07/14/18 08:12 Dose: 40 mg Ondansetron HCl (Zofran Inj) 4 mg IV.PUSH Q6H PRN PRN Reason: NAUSEA OR VOMITING Sodium Chloride (Ns Flush) 2 ml IV.FLUSH UNSCH PRN PRN Reason: FLUSH AFTER USING IV ACCESS Last Admin: 07/14/18 08:12 Dose: 2 ml Allergies Allergy/AdvReac Type Severity Reaction Status Date / Time No Known Allergies Allergy Verified 07/13/18 17:39 Home Medications Medication Instructions Recorded Confirmed Type lisinopril 40 mg PO DAILY 07/13/18 07/13/18 History Exam Vital signs: Vital Signs 07/13/18 17:39 07/13/18 17:45 07/13/18 18:27 Temperature 97.6 F Pulse Rate 94 H 88 Respiratory Rate 20 20 Blood Pressure 114/79 85/57 L Pulse Oximetry 96 97 98 07/13/18 18:51 07/13/18 20:38 07/14/18 00:00 Temperature 97 F L Pulse Rate 86 82 87 Respiratory Rate 20 18 20 Blood Pressure 124/66 142/79 H 181/102 H Pulse Oximetry 98 99 98 07/14/18 04:00 07/14/18 08:00 Temperature 96.3 F L 97.6 F Pulse Rate 72 66 Respiratory Rate 20 18 Blood Pressure 180/103 H 175/95 H Pulse Oximetry 99 95 Intake & Output 07/13/18 07/14/18 07/14/18 18:59 06:59 18:59 Intake Total 0 / 0 Balance 0 / 0 Weight 72.7 kg 73.7 kg Intake: Oral 0 / 0 Other: # Voids 2 Weight On Admission 73.7 kg Narrative: GENERAL: Well-developed, well-nourished, in no acute distress. alert and orientated HEENT: Head is normocephalic without any lesions or masses noted. Facial features are symmetric. Eyes: Pupils equal round reactive to light. Extraocular muscles are intact. Conjunctivae were clear. Oropharyngeal: Pharynx without any erythema edema. Tongue is midline without deviation. Buccal mucosa is moist without any masses or lesions NECK: Supple without any masses. Trachea midline no deviation. No JVD, no bruits are appreciated CARDIAC: Regular rhythm, regular rate. S1/S2 are heard. No murmurs gallops or rubs. LUNGS: Clear to auscultation bilaterally. No wheeze, rhonchi or rales. No use of accessory muscles on inspiration or expiration. ABDOMEN: Soft, nontender. Nondistended. Bowel sounds heard in all 4 quadrants. No organomegaly or masses. Negative rebound, negative guarding EXTREMITIES: No edema, pulses are equal bilaterally. No cyanosis or clubbing NEUROLOGY: Mood and affect appear appropriate. Cranial nerves II through XII grossly intact. Muscle strength 5/5 in upper and lower extremities bilaterally. Deep tendon reflexes are 2+ in upper and lower extremities bilaterally. Results - Labs CBC & Chem 7: 07/14/18 07:15 07/14/18 07:15 Labs: Laboratory Results - last 24 hr 07/13/18 07/13/18 07/13/18 18:00 18:00 18:00 CBC w Diff Auto diff final WBC 7.4 RBC 4.24 L Hgb 13.9 Hct 40.5 MCV 95.6 MCH 32.8 MCHC 34.3 RDW 12.8 Plt Count 193 MPV 8.7 Neut % (Auto) 59.0 Lymph % (Auto) 32.3 [place] % (Auto) 5.4 Eos % (Auto) 2.4 Baso % (Auto) 0.9 Neut # (Auto) 4.3 Lymph # (Auto) 2.4 [place] # (Auto) 0.4 Eos # (Auto) 0.2 Baso # (Auto) 0.1 WBC Differential . Differential Comment . PT 10.2 INR 1.0 APTT 21.6 L Sodium 139 Potassium 3.1 L Chloride 104 Carbon Dioxide 21.4 Anion Gap 14 BUN 10 Creatinine 0.87 Estimated GFR 89 Random Glucose 131 H Calcium 8.0 L Magnesium 2.3 Total Bilirubin 0.4 AST 28 ALT 25 Alkaline Phosphatase 98 Total Creatine Kinase 90 Troponin I Less than 0.02 L B-Natriuretic Peptide Total Protein 6.8 Albumin 3.8 Urine Color Urine Clarity Urine pH Ur Specific [place] Urine Protein Urine Glucose (UA) Urine Ketones Urine Occult Blood Urine Nitrate Urine Bilirubin Urine Urobilinogen Ur Leukocyte Esterase Urine WBC Micro UA Comment Ur Microscopic Review Urine Culture Comments 07/13/18 07/13/18 07/13/18 19:45 19:45 19:45 CBC w Diff Auto diff final WBC 6.9 RBC 4.31 L Hgb 14.2 Hct 40.0 MCV 92.8 MCH 32.9 MCHC 35.4 RDW 13.1 Plt Count 222 MPV 9.5 Neut % (Auto) 52.5 Lymph % (Auto) 34.2 [place] % (Auto) 5.7 Eos % (Auto) 3.3 Baso % (Auto) 4.3 H Neut # (Auto) 3.6 Lymph # (Auto) 2.4 [place] # (Auto) 0.4 Eos # (Auto) 0.2 Baso # (Auto) 0.3 H WBC Differential . Differential Comment . PT INR APTT Sodium Potassium Chloride Carbon Dioxide Anion Gap BUN Creatinine Estimated GFR Random Glucose Calcium Magnesium Total Bilirubin AST ALT Alkaline Phosphatase Total Creatine Kinase Troponin I Less than 0.02 L B-Natriuretic Peptide 48 Total Protein Albumin Urine Color Urine Clarity Urine pH Ur Specific [place] Urine Protein Urine Glucose (UA) Urine Ketones Urine Occult Blood Urine Nitrate Urine Bilirubin Urine Urobilinogen Ur Leukocyte Esterase Urine WBC Micro UA Comment Ur Microscopic Review Urine Culture Comments 07/13/18 07/13/18 07/14/18 21:30 22:15 02:30 CBC w Diff WBC RBC Hgb Hct MCV MCH MCHC RDW Plt Count MPV Neut % (Auto) Lymph % (Auto) [place] % (Auto) Eos % (Auto) Baso % (Auto) Neut # (Auto) Lymph # (Auto) [place] # (Auto) Eos # (Auto) Baso # (Auto) WBC Differential Differential Comment PT INR APTT Sodium Potassium Chloride Carbon Dioxide Anion Gap BUN Creatinine Estimated GFR Random Glucose Calcium Magnesium Total Bilirubin AST ALT Alkaline Phosphatase Total Creatine Kinase 75 Troponin I Less than 0.02 L Less than 0.02 L B-Natriuretic Peptide Total Protein Albumin Urine Color Straw Urine Clarity Clear Urine pH 6.0 Ur Specific [place] Less/equal 1.005 Urine Protein Negative Urine Glucose (UA) Negative Urine Ketones Negative Urine Occult Blood Negative Urine Nitrate Negative Urine Bilirubin Negative Urine Urobilinogen 0.2 Ur Leukocyte Esterase Negative Urine WBC 0-5 Micro UA Comment Culture not ind Ur Microscopic Review Microscopic reviewed Urine Culture Comments Culture not ind 07/14/18 07/14/18 07:15 07:15 CBC w Diff Auto diff final WBC 5.4 RBC 4.21 L Hgb 13.6 Hct 39.4 MCV 93.7 MCH 32.3 MCHC 34.4 RDW 13.2 Plt Count 184 MPV 9.4 Neut % (Auto) 64.4 Lymph % (Auto) 23.2 [place] % (Auto) 6.8 Eos % (Auto) 2.7 Baso % (Auto) 2.9 H Neut # (Auto) 3.5 Lymph # (Auto) 1.2 [place] # (Auto) 0.4 Eos # (Auto) 0.1 Baso # (Auto) 0.2 WBC Differential . Differential Comment . PT INR APTT Sodium 140 Potassium 4.1 D Chloride 109 H Carbon Dioxide 23.4 Anion Gap 8 BUN 13 Creatinine 0.89 Estimated GFR 87 L Random Glucose 99 Calcium 8.3 L Magnesium Total Bilirubin AST ALT Alkaline Phosphatase Total Creatine Kinase Troponin I B-Natriuretic Peptide Total Protein Albumin Urine Color Urine Clarity Urine pH Ur Specific [place] Urine Protein Urine Glucose (UA) Urine Ketones Urine Occult Blood Urine Nitrate Urine Bilirubin Urine Urobilinogen Ur Leukocyte Esterase Urine WBC Micro UA Comment Ur Microscopic Review Urine Culture Comments - Imaging Impressions Chest X-Ray 07/13/18 17:45 CONCLUSION: No acute cardiopulmonary process. Chest X-Ray 07/13/18 19:28 CONCLUSION: Negative lateral chest x-ray. Caprini VTE Risk Assessment Caprini VTE Risk Assessment: No/Low Risk (score <= 1) Caprini Risk Assessment Model: Point Value = 1 Point Value = 2 Point Value = 3 Point Value = 5 Age 41-60 Minor surgery BMI > 25 kg/m2 Swollen legs Varicose veins or History of unexplained or recurrent spontaneous Oral contraceptives or hormone replacement Sepsis (< 1 month) Serious lung disease, including pneumonia (< 1 month) Abnormal pulmonary function Acute myocardial infarction Congestive heart failure (< 1 month) History of inflammatory bowel disease Medical patient at bed rest Age 61-74 Arthroscopic surgery Major open surgery (> 45 min) Laparoscopic surgery (> 45 min) Malignancy Confined to bed (> 72 hours) Immobilizing plaster cast Central venous access Age >= 75 History of VTE Family history of VTE Factor V Leiden Prothrombin [id number] Lupus anticoagulant Anticardiolipin antibodies Elevated serum homocysteine Heparin-induced thrombocytopenia Other congenital or acquired thrombophilia Stroke (< 1 month) Elective arthroplasty Hip, pelvis, or leg fracture Acute spinal cord injury (< 1 month) Prophylaxis Regimen: Total Risk Factor Score Risk Level Prophylaxis Regimen 0-1 Low Early ambulation 2 Moderate Order ONE of the following: *Sequential Compression Device (SCD) *Heparin 5000 units SQ BID 3-4 Higher Order ONE of the following medications: *Heparin 5000 units SQ TID *Enoxaparin/Lovenox 40 mg SQ daily (WT < 150 kg, CrCl > 30 mL/min) *Enoxaparin/Lovenox 30 mg SQ daily (WT < 150 kg, CrCl > 10-29 mL/min) *Enoxaparin/Lovenox 30 mg SQ BID (WT < 150 kg, CrCl > 30 mL/min) AND/OR *Sequential Compression Device (SCD) 5 or more Highest Order ONE of the following medications: *Heparin 5000 units SQ TID (Preferred with Epidurals) *Enoxaparin/Lovenox 40 mg SQ daily (WT < 150 kg, CrCl > 30 mL/min) *Enoxaparin/Lovenox 30 mg SQ daily (WT < 150 kg, CrCl > 10-29 mL/min) *Enoxaparin/Lovenox 30 mg SQ BID (WT < 150 kg, CrCl > 30 mL/min) AND *Sequential Compression Device (SCD) Assessment and Plan - Assessment (1) Chest pain Code(s): R07.9 - Chest pain, unspecified Status: Acute - Plan Chest pain -Patient with increased risk factors include age, male, hypertension, tobacco use -Patient has been ruled out for acute coronary event with serial cardiac enzymes that are negative, -Serial EKG shows sinus rhythm without any changes -Myocardial perfusion study was performed and indicated No reversible defects observed to suggest acute ischemia. Low risk -Continue aspirin, nitroglycerin as needed Hypertension, uncontrolled -Continue lisinopril 40 mg daily -Vasotec/clonidine as needed Tobacco use -Patient counseled on cessation DVT prevention -Sequential compression devices Discharge Planning: Discharge home in stable condition Activity: Ad sammie. Diet: Healthy heart diet Medication per medication reconciliation Follow-up with primary medical doctor in 1 week
[2018-07-14] MEDS ORDERED: Acetaminophen 500 MG Tablet PO PRN (10:08)
--- NOTE | 2018-07-14 10:48 | ECG ---
Date Performed: 07/13/2018 Time Performed: 17:46:34 PTAGE: 63 years EKG: Sinus rhythm WITH SHORT [place] INTERVAL BORDERLINE ECG INTERPRETATION BASED ON A DEFAULT AGE OF 42 YEARS PREVIOUS TRACING : 11/19/2017 07.51 DOCTOR: Alen Rincon Interpretating Date/Time 07/14/2018 10:46:47
[2018-07-14] MEDS ORDERED: amLODIPine 5 MG Tablet PO SCH (12:15)
[2018-07-14] MEDS ORDERED: Regadenoson Inj 0.4 MG/5 ML Syringe IV.PUSH ONE (13:44)
--- NOTE | 2018-07-14 14:55 | TR ---
Date Performed: 07/14/2018 Time Performed: 14:04:21 DOCTOR: Jose Carlos Trotter DRUG LIST: CLINICAL HISTORY: ANGINA REASON FOR TEST: Angina REASON FOR ENDING: OBSERVATION: CONCLUSION: COMMENTS: Lexiscan stress test was performed under standard four minute protocol. Radionuclide was injected one minute prior to ending the test. No electrocardiographic abormalities were present t o suggest ischemia. Nuclear imaging and interpretation are pending.
--- NOTE | 2018-07-14 15:12 | NM ---
EXAM DATE: 07/14/2018 1:43 PM EDT AGE/SEX: 63 years / Male INDICATIONS:Angina. . Mid chest pain for one day. CLINICAL DATA: This is the patient's initial encounter. Patient reports that signs and symptoms have been present for 1 day and indicates a pain score of 7/10. MEDICAL/SURGICAL HISTORY: Cardiovascular disease. Hypertension. None. COMPARISON: No prior exams available for comparison. No external comparison. DOSE: 8.7 mCi Tc 99m Myoview at rest 25.8 mCi [id number] at stress 0.4 mg Lexiscan STRESS SYMPTOMS: Short of breath. EJECTION FRACTION: 70 % TECHNIQUE: The patient underwent pharmacologic stress with infusion of prescribed dose. Continuous ECG tracing was monitored during stress. Gated SPECT imaging was performed after stress and conventi onal SPECT imaging was performed at rest. The examination was performed on a SPECT/CT scanner, both attenuation and non-corrected datasets were reviewed. FINDINGS: Distribution: The maximum perfused segment at stress is in the inferolateral wall. Perfusion Study: The pattern of perfusion at stress is within normal limits. Gated Study: There are intact wall motion and wall thickening without hypokinetic or dyskinetic segm ents. The ejection fraction is calculated at 70%. RISK CATEGORY: Low (<1% Annual Motality Rate) CONCLUSION: 1. No reversible defects observed to suggest acute ischemia. Electronically signed by: Bryan Weems MD 07/14/2018 3:11 PM EDT
[2018-07-14 15:18] VITALS: BP 150/78; PULSE 72; TEMP 96.6; O2SAT 98
== END 2018-07-14 16:00 | disposition home or self-care (01) ==
LOC: PHED 17:37 → PHEDA 17:37 → PH3 22:53
PROVIDERS: ADMIT Hospitalist; ATTEND Hospitalist